=== PATIENT | female | born 1990 | race Caucasian/White ===

== ENCOUNTER 2018-10-29 18:48 | Emergency (ER) | payer OTHER ==
[2018-10-30] MEDS ORDERED: SOD CHLORIDE 0.9% 1,000 ML IV
[2018-10-30] MEDS ORDERED: morphine 2 MG INJ IV
[2018-10-30] MEDS ORDERED: FAMOTIDINE 20 MG INJ IV
[2018-10-30] MEDS ORDERED: ONDANSETRON 4 MG INJ IV
[2018-10-30] MEDS: KETOROLAC 30 MG INJ IM (00:29)
[2018-10-30 00:35] LABS: URINE BLOOD (Dip) POC Negative (NEGATIVE); URINE GLUCOSE (Dip) POC Negative (NEGATIVE); URINE KETONES (Dip) POC Negative (NEGATIVE); URINE LEUKOCYTE EST (Dip) POC 1+ (NEGATIVE); URINE NITRITE (Dip) POC Negative (NEGATIVE); URINE TOTAL PROTEIN POC Negative (NEGATIVE)
[2018-10-30 00:35] LABS: URINE PH (Dip) POC 5.5 (5.0-8.5)
== END 2018-10-30 01:50 | disposition home or self-care (01) ==
LOC: FTE 10-30 01:50
DX: M54.5 Low back pain (principal)
CPT/HCPCS: 81003; 81025; 96372; 99284-25

== ENCOUNTER 2018-11-12 13:15 | Emergency (ER) | payer OTHER ==
[2018-11-12] MEDS: ACETAMINOPHEN 500 MG TAB PO (16:17)
== END 2018-11-12 17:58 | disposition home or self-care (01) ==
LOC: FTE 17:58
DX: S40.212A Abrasion of left shoulder, initial encounter (principal); S20.219A Contusion of unspecified front wall of thorax, initial encounter; S13.9XXA Sprain of joints and ligaments of unspecified parts of neck, initial encounter; R07.9 Chest pain, unspecified; V89.2XXA Person injured in unspecified motor-vehicle accident, traffic, initial encounter
CPT/HCPCS: 71045; 72040; 93005; 99284-25